=== PATIENT | male | born 1970 | race African-American/Black ===

== ENCOUNTER 2017-06-02 03:46 | Emergency (ER) | payer OTHER ==
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
[2017-06-02 03:56] VITALS: BMI 41.0
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
[2017-06-02] MEDS ORDERED: predniSONE 20 MG TABLET (UD) PO ONE (04:05)
[2017-06-02] MEDS ORDERED: ALBUTEROL SO4 2.5/IPRATROPIUM 0.5 INH SOL 3 ML VIAL.NEB. NEB ONE ×2 (04:21→04:39)
[2017-06-02] MEDS ORDERED: predniSONE 20 MG TABLET (UD) ONE (04:21)
[2017-06-02] MEDS: ALBUTEROL SO4 2.5/IPRATROPIUM 0.5 INH SOL 3 ML VIAL.NEB. NEB SCH ×3 (04:29→05:50)
[2017-06-02] MEDS ORDERED: ALBUTEROL SO4 0.083% IH SOL 2.5 MG/3 ML VIAL.NEB. NEB ONE (05:14)
[2017-06-02 06:57] VITALS: BP 122/79; PULSE 89; TEMP 98.5
== END 2017-06-02 07:00 | disposition home or self-care (01) ==
LOC: JER 03:46
PROC: 3E0F7GC Introduction of Other Therapeutic Substance into Respiratory Tract, Via Natural or Artificial Opening (ICD-10-PCS; principal; 2017-06-02)
PROC: 3E0F7GC Introduction of Other Therapeutic Substance into Respiratory Tract, Via Natural or Artificial Opening (ICD-10-PCS; 2017-06-02)
PROC: 3E0F7GC Introduction of Other Therapeutic Substance into Respiratory Tract, Via Natural or Artificial Opening (ICD-10-PCS; 2017-06-02)
PROC: 3E0F7GC Introduction of Other Therapeutic Substance into Respiratory Tract, Via Natural or Artificial Opening (ICD-10-PCS; 2017-06-02)
DX: T59.811A Toxic effect of smoke, accidental (unintentional), initial encounter (principal); J70.5 Respiratory conditions due to smoke inhalation; J45.998 Other asthma; X02.1XXA Exposure to smoke in controlled fire in building or structure, initial encounter; Y93.89 Activity, other specified; Y92.038 Other place in apartment as the place of occurrence of the external cause; Y99.8 Other external cause status
CPT/HCPCS: 99282-25